=== PATIENT | female | born 1955 | race Caucasian/White ===

== ENCOUNTER → 2016-09-18 | Outpatient (CLI) | payer BC ==
[~2016-09-18] MED LIST: ADVIN25/60 INH; ALBU1AER9 INH; ATOR-22 PO; LISI20TA3 PO; PANT40TA PO; PROC1TAB5 PO; RANI300T2 PO; WARF2TAB PO
[2016-09-18 12:21] LABS: ALT/SGPT 28 U/L (12-78); BLOOD UREA NITROGEN 15 mg/dl (7-18); BUN/CREATININE RATIO 18.9 (10-20); CALCIUM 9.1 mg/dl (8.5-10.1); CARBON DIOXIDE 31 mmol/L (21-32); CHLORIDE 106 mmol/L (98-107); CHOLESTEROL 175 mg/dl (0-200); CREATININE 0.81 mg/dl (0.60-1.20); GLUCOSE 107 mg/dl (70-99); POTASSIUM 4.5 mmol/L (3.5-5.1); SODIUM 140 mmol/L (136-145); TRIGLYCERIDES 81 mg/dl (0-150); VERY LOW DENSITY LIPOPROT CALC 16 mg/dl
[2016-09-18 12:24] LABS: ALB/GLOB RATIO 1.2 (0.9-2); ALKALINE PHOSPHATASE 89 U/L (45-117); AST/SGOT 15 U/L (15-37); CHOLESTEROL/HDL RATIO 2.7; HDL CHOLESTEROL 64 mg/dl; LDL CHOLESTEROL CALCULATED 95 mg/dl
[2016-09-18 12:39] LABS: ESTIMATED AVERAGE GLUCOSE 143 mg/dl; HA1C FLAG Normal (Normal)
== END | disposition home or self-care (01) ==
LOC: C.LAB1850 10:16
PROVIDERS: ATTEND Internal Medicine Pulmonary Disease
DX: J45.909 Unspecified asthma, uncomplicated (principal); I10 Essential (primary) hypertension; K21.9 Gastro-esophageal reflux disease without esophagitis; E11.9 Type 2 diabetes mellitus without complications; M15.9 Polyosteoarthritis, unspecified

== ENCOUNTER → 2017-03-16 | Outpatient (CLI) | payer BC ==
[2017-03-16 12:18] LABS: ALT/SGPT 25 U/L (12-78); BLOOD UREA NITROGEN 16 mg/dl (7-18); BUN/CREATININE RATIO 21.6 (10-20); CALCIUM 9.6 mg/dl (8.5-10.1); CARBON DIOXIDE 28 mmol/L (21-32); CHLORIDE 105 mmol/L (98-107); CHOLESTEROL 202 mg/dl (0-200); CREATININE 0.76 mg/dl (0.60-1.20); GLUCOSE 123 mg/dl (70-99); POTASSIUM 4.2 mmol/L (3.5-5.1); SODIUM 139 mmol/L (136-145)
[2017-03-16 12:21] LABS: ALKALINE PHOSPHATASE 96 U/L (45-117); AST/SGOT 17 U/L (15-37); CHOLESTEROL/HDL RATIO 3.4; HDL CHOLESTEROL 59 mg/dl; LDL CHOLESTEROL CALCULATED 124 mg/dl; TRIGLYCERIDES 96 mg/dl (0-150); VERY LOW DENSITY LIPOPROT CALC 19 mg/dl
[2017-03-16 12:32] LABS: ESTIMATED AVERAGE GLUCOSE 146 mg/dl; HA1C FLAG Normal (Normal)
== END | disposition home or self-care (01) ==
LOC: C.LAB1850 09:42
PROVIDERS: ATTEND Internal Medicine Pulmonary Disease
DX: J45.909 Unspecified asthma, uncomplicated (principal); I10 Essential (primary) hypertension; M15.9 Polyosteoarthritis, unspecified; E11.9 Type 2 diabetes mellitus without complications; K21.9 Gastro-esophageal reflux disease without esophagitis

== ENCOUNTER → 2017-05-03 | Outpatient (CLI) | payer BC | END | disposition home or self-care (01) | LOC: C.RDSM 15:58 | PROVIDERS: ATTEND Physical Medicine & Rehabilitation Sports Medicine | DX: M17.12 Unilateral primary osteoarthritis, left knee (principal) ==

== ENCOUNTER → 2017-09-10 | Outpatient (CLI) | payer BC ==
[2017-09-10 10:34] LABS: BASO % 0.6 %; BASO ABS # 0.04 K/uL (0-0.2); EOS % 1.2 %; EOS ABS # 0.09 K/uL (0-0.5); HEMATOCRIT 43.3 % (37-47); HEMOGLOBIN 14.8 g/dL (12.0-16.0); IG# 0.01 K/uL (0.00-0.02); LYMPH % 25.3 %; LYMPH ABS # 1.83 K/uL (1.2-3.4); MEAN CELL VOLUME 90.4 fL (80-100); MEAN CORPUSCULAR HEMOGLOBIN 30.9 pg (25-34); MEAN CORPUSCULAR HGB CONC 34.2 g/dl (32-36); MEAN PLATELET VOLUME 10.7 fL (7.4-10.4); MONO % 6.5 %; MONO ABS # 0.47 K/uL (0.11-0.59); NEUT % 66.3 %; PLATELET COUNT 268 K/uL (130-400); RED CELL DISTRIBUTION WIDTH CV 13.4 % (11.5-14.5); RED CELL DISTRIBUTION WIDTH SD 44.6 fL (36.4-46.3); WHITE BLOOD COUNT 7.24 K/uL (4.8-10.8)
[2017-09-10 11:11] LABS: ALBUMIN 3.8 gm/dl (3.4-5.0); ALT/SGPT 28 U/L (12-78); AST/SGOT 14 U/L (15-37); BLOOD UREA NITROGEN 18 mg/dl (7-18); CALCIUM 9.2 mg/dl (8.5-10.1); CARBON DIOXIDE 26 mmol/L (21-32); CREATININE 0.84 mg/dl (0.60-1.20); GLUCOSE 115 mg/dl (70-99); SODIUM 138 mmol/L (136-145)
[2017-09-10 11:22] LABS: ALKALINE PHOSPHATASE 99 U/L (45-117); CHOLESTEROL 208 mg/dl (0-200); LDL CHOLESTEROL CALCULATED 120 mg/dl; TOTAL PROTEIN 7.5 gm/dl (6.4-8.2)
[2017-09-10 11:44] LABS: HEMOGLOBIN A1C 6.6 % (4.5-5.6)
== END | disposition home or self-care (01) ==
LOC: C.LAB1850 10:04
PROVIDERS: ATTEND Internal Medicine Pulmonary Disease
DX: M17.10 Unilateral primary osteoarthritis, unspecified knee (principal)

== ENCOUNTER → 2017-10-04 | Outpatient (CLI) | payer BC | END | disposition home or self-care (01) | LOC: C.RDSM 17:32 | PROVIDERS: ATTEND Physical Medicine & Rehabilitation Sports Medicine | DX: Z96.653 Presence of artificial knee joint, bilateral (principal) ==

== ENCOUNTER 2022-02-24 06:47 | Observation (INO) ==
--- NOTE | 2022-01-06 10:03 | PAT Medication Instructions ---
Medication Instructions Date of Service January 06, 2022 Home Medications Medication Instructions Recorded lisinopril 20 mg tablet 20 mg PO QAM #90 tab 04/23/21 prochlorperazine maleate 10 mg 10 mg PO UD PRN #90 tab 04/23/21 tablet (Compazine) blood sugar diagnostic ([facility]24[facility]21 Verio test strips) blood-glucose meter ([facility]Touch #1 ea 04/24/21 Verio Flex meter) lancets 33 gauge (OneTouch Delica #100 ea 04/24/21 Lancets) metformin 500 mg tablet,extended 500 mg PO BID #180 tab 04/25/21 release 24 hr tramadol 50 mg tablet 100 mg PO UD PRN #90 tab 12/08/21 ibuprofen 200 mg tablet (Advil) 200 mg PO Q6H PRN fluticasone 250 mcg-salmeterol 50 mcg/dose blistr powdr for inhalation (Advair Diskus) 1 puffs INH BID PRN lisinopril 20 mg tablet 20 mg PO QAM prochlorperazine maleate 10 mg tablet (Compazine) 10 mg PO UD PRN metformin 500 mg tablet,extended release 24 hr 500 mg PO BID tramadol 50 mg tablet 100 mg PO UD PRN albuterol sulfate 90 mcg/actuation aerosol inhaler (ProAir HFA) 2 puff INHALATION UD PRN atorvastatin 20 mg tablet 20 mg PO QAM pantoprazole 40 mg tablet,delayed release 40 mg PO BID ASK your surgeon for instructions ibuprofen 200 mg tablet (Advil) 200 mg PO Q6H PRN DO NOT take the morning of surgery lisinopril 20 mg tablet 20 mg PO QAM metformin 500 mg tablet,extended release 24 hr 500 mg PO BID Take morning of surgery With a small sip of water, OTHERWISE NOTHING TO EAT OR DRINK AFTER MIDNIGHT: fluticasone 250 mcg-salmeterol 50 mcg/dose blistr powdr for inhalation (Advair Diskus) 1 puffs INH BID PRN (if needed) prochlorperazine maleate 10 mg tablet (Compazine) 10 mg PO UD PRN (if needed) tramadol 50 mg tablet 100 mg PO UD PRN (if needed) albuterol sulfate 90 mcg/actuation aerosol inhaler (ProAir HFA) 2 puff INHALATION UD PRN (if needed) atorvastatin 20 mg tablet 20 mg PO QAM pantoprazole 40 mg tablet,delayed release 40 mg PO BID Take evening before surgery fluticasone 250 mcg-salmeterol 50 mcg/dose blistr powdr for inhalation (Advair Diskus) 1 puffs INH BID PRN (if needed) prochlorperazine maleate 10 mg tablet (Compazine) 10 mg PO UD PRN (if needed) metformin 500 mg tablet,extended release 24 hr 500 mg PO BID tramadol 50 mg tablet 100 mg PO UD PRN (if needed) albuterol sulfate 90 mcg/actuation aerosol inhaler (ProAir HFA) 2 puff INHALATION UD PRN (if needed) pantoprazole 40 mg tablet,delayed release 40 mg PO BID Other Notes If you have any questions please call us at [phone] or [phone] or [phone] or [phone]
--- NOTE | 2022-01-09 12:11 | Anesthesiology Consultation ---
Date of Service January 09, 2022 Assessment & Plan (1) Encounter for pre-operative examination: - COVID screening: Per assessment on 01/09: No known COVID-19 positive contacts or current COVID-19 related symptoms. Travel screen negative. Patient vaccinated. Surgeon arranging preop COVID testing. Awaiting results. - PCP office visit (12/17/21): "She has no known heart disease. She is at risk for healing issues with her skin condition and her diabetes. However in general her medical problems are under good control and she can proceed on with her surgery.. I will review her labs which are scheduled to be done January 08." - Hx glidescope intubation: Left distal radius fracture ORIF (12/11/19): Glidescope #4, ETT 7 at [facility]. Per post-op anesthesia progress note "In phase 2, patient with 1, maybe 2 hives, around IV insertion site. No other visible hives. Denies itching or SOB or any other concerning symptoms. Reports that sometimes tape will cause this reaction. Patient given 25 mg PO benadryl." - Check BSG AM DOS Chart Review Chart Review: Acceptable Risk for Surgery and Patient seen in Pre Admission Testing Teaching & Discussion Pre-Anesthesia Teaching/Discussion Notes: Instructed NPO after midnight before surgery,except medications with 15 cc of water. Medication instructions provided according to the PAT guidelines. History Surgery Operation Date: 01/28/22 07:00 Proposed Procedures p Lysis of Adhesions/Polyexchange Possible Revision Implants Left Knee Replacement - Pavan Villa MD Height/Weight Height: 5 ft 5.5 in Weight: 111.8 kg Allergies Allergy/AdvReac Type Severity Reaction Status Date / Time codeine AdvReac Intermediate Severe Verified 01/09/22 12:07 nausea hydrocodone AdvReac Intermediate Severe N/V Verified 01/09/22 12:07 morphine AdvReac Intermediate All Verified 01/09/22 12:07 narcotics > severe N/V oxycodone AdvReac Intermediate Severe N/V Verified 01/09/22 12:07 Medications Home Medications Medication Instructions Recorded Confirmed Last Taken ibuprofen 200 mg tablet (Advil) 200 mg PO Q6H PRN 12/08/19 01/01/22 12/07/19 fluticasone 250 mcg-salmeterol 50 1 puffs INH BID PRN 12/10/20 01/01/22 Unknown mcg/dose blistr powdr for inhalation (Advair Diskus) lisinopril 20 mg tablet 20 mg PO QAM #90 tab 04/23/21 01/01/22 Unknown prochlorperazine maleate 10 mg 10 mg PO UD PRN #90 tab 04/23/21 01/01/22 Unknown tablet (Compazine) blood sugar diagnostic ([facility]Touch #50 ea 04/24/21 12/17/21 Unknown Verio test strips) blood-glucose meter (OneTouch #1 ea 04/24/21 12/17/21 Unknown Verio Flex meter) lancets 33 gauge (OneTouch Delica #100 ea 04/24/21 12/17/21 Unknown Lancets) metformin 500 mg tablet,extended 500 mg PO BID #180 tab 04/25/21 01/01/22 Unknown release 24 hr tramadol 50 mg tablet 100 mg PO UD PRN #90 tab 12/08/21 01/01/22 Unknown albuterol sulfate 90 mcg/actuation 2 puff INHALATION UD PRN 01/01/22 01/01/22 Unknown aerosol inhaler (ProAir HFA) atorvastatin 20 mg tablet 20 mg PO QAM 01/01/22 01/01/22 Unknown pantoprazole 40 mg tablet,delayed 40 mg PO BID 01/01/22 01/01/22 Unknown release amoxicillin 875 mg-potassium 1 tab PO BID #20 tab 01/07/22 Unknown clavulanate 125 mg tablet Past Medical History Medical History Angioedema Remote hx 15-20 years ago per pt. She states she has forgotten the details (but does recall r/t spider bite). No similar episodes since. Asthma Stable Diabetes mellitus, type 2 Family history of hematologic disorder Both daughters have tested positive for Factor 5 leiden mutation. Pt reports that "my insurance won't pay to have me tested. I am worried that I may have it also" GERD (gastroesophageal reflux disease) Controlled History of COVID-19 Dx 04/2020 > headache x2 days, resolved History of kidney stones Hyperlipidemia Hypertension Obesity Osteoarthritis Exercise / Class Metabolic Activity III < 4 Walking/Shop/Light housework (one FS (no CP, + SOB)) Past Family History Family History Brother Family history of diabetes mellitus Daughter Family history of factor V Leiden mutation Son Family history of bladder cancer Other No family history of adverse response to anesthesia Past Surgical History Surgical History H/O repair of rotator cuff Right x5, Left x2 History of bilateral tubal ligation History of cholecystectomy History of esophagogastroduodenoscopy (EGD) History of open reduction and internal fixation (ORIF) procedure Left distal radius fracture ORIF (12/11/19): Glidescope #4, ETT 7 at [facility]. Per post-op anesthesia progress note "In phase 2, patient with 1, maybe 2 hives, around IV insertion site. No other visible hives. Denies itching or SOB or any other concerning symptoms. Reports that sometimes tape will cause this reaction. Patient given 25 mg PO benadryl." History of sinus surgery History of tonsillectomy History of tooth extraction History of total knee replacement R/L Nausea and vomiting after administration of anesthetic agent Past Anesthesia History No Hx of Anesthesia Complications (except PONV) and No Family Hx of Anesthesia Complications History of PONV No Hx of Motion Sickness and History of PONV (No issues when pre-treatment used (improvement with scope patch in the past)) Social History Smoking Status: Never smoker Do You Dip or Chew Tobacco: No Hx Alcohol Use: Yes (wine cooler-rare) alcohol intake frequency: holidays/special occasions only Hx Substance Use: No substance use type: does not use Review of Systems Patient denies chest pain, shortness of breath, fever, chills, cough, wheezing, palpitations. Physical Exam Vital Signs VITALS BP 135/83 P 75 TEMP 99.1 SP02 98%RA RESP 16 PHYSICAL Full cervical extension range of motion. Full TMJ range of motion. TMD 4 finger breaths Mallampati Score 3 Dentition: missing molars Lungs: clear throughout to auscultation Cardiac: regular rate and rhythm, no murmurs noted Spine: normal Carotid arteries: negative bruit Extremities: non-pitting LE edema Lab Results Anesthesia Preop Results Results Anesthesia Widget: WBC 6.54 K/ul (4.8-10.8) 01/09/22 Hgb 13.5 g/dl (12.0-16.0) 01/09/22 Hct 40.4 % (34.1-44.9) 01/09/22 Plt 249 K/uL (130-400) 01/09/22 Na 138 mmol/L (136-145) 01/09/22 K 4.0 mmol/L (3.5-5.1) 01/09/22 Cl 105 mmol/L (98-107) 01/09/22 CO2 29 mmol/L (21-32) 01/09/22 BUN 13 mg/dl (6-23) 01/09/22 Creat 0.78 mg/dl (0.6-1.2) 01/09/22 Glucose Level 178 mg/dl (70-99(Fasting)) H 01/09/22 PT 11.9 Seconds (9.0-12.0) 01/09/22 PTT 25.3 Seconds (21.0-31.0) 01/09/22 INR 1.1 (0.9-1.1) 01/09/22 HA1c 7.3 % (4.5-5.6) H 01/09/22 Urine Color Yellow 01/09/22 Urine Appearance Clear (Clear) 01/09/22 Urine pH 6.0 (4.5-7.5) 01/09/22 Urine Specific Gregory 1.031 (1.000-1.030) H 01/09/22 Urine Protein Negative (Negative) 01/09/22 Urine Glucose (UA) Negative (Negative) 01/09/22 Urine Ketones Negative (Negative) 01/09/22 Urine Blood Negative (Negative) 01/09/22 Urine Nitrite Negative (Negative) 01/09/22 Urine Bilirubin Negative (Negative) 01/09/22 Urine Urobilinogen Negative (Negative) 01/09/22 Urine Leukocyte Esterase Negative (Negative) 01/09/22 Blood Type A Positive 01/09/22 Antibody Screen NEGATIVE 01/09/22 Testing Electrocardiogram Date: 01/09/22 NSR at 72bpm. Chest X-Ray Date: 01/09/22 FINDINGS: The lungs are clear. Cardiac silhouette is normal in size. No pleural effusions. No pneumothorax. Metallic anchors noted within the left humeral head. Prior cholecystectomy. IMPRESSION: No acute process.
--- NOTE | 2022-01-20 10:23 | History & Physical Report ---
Date of Service January 20, 2022 Assessment & Plan (1) Arthrofibrosis of total knee arthroplasty: Plan: Postoperative prescription for Percocet and Coumadin will be provided at discharge from the hospital. Anticipate discharge to home with home health services. She would like to then attend PT here in the office. The patient already has access to a walker and cane. She will be sent to [facility] for preoperative lab work, EKG, and chest x-ray. She has already seen her PCP for medical clearance. She is at risk for healing issues with her type 2 diabetes and her skin condition. She is aware. The patient is aware of COVID-19 risks associated with surgery. She is currently asymptomatic of any COVID-19 symptoms. She did have COVID-19 last year. She will obtain nasal swab testing 2 days prior to surgery. PDMP was checked and there are no concerning findings. Postop followup appointment has been made for 02/13 at 10:00 a.m. for staple removal.Preop cultures and CRP are wnl. History of Present Illness Chief Complaint: Left knee pain and loss of motion Primary Care Provider: Rajat Rhodes MD This 66-year-old female presents for her preoperative history and physical. She is scheduled to undergo a left knee arthrotomy, lysis of adhesions, poly exchange, and possible revision of her left total knee arthroplasty on 01/28/2022. The patient has had a longstanding history of left knee pain. Symptoms started after falling in May of 2020. She has had persisting discomfort since then. The patient has a previous history of left total knee arthroplasty on 10/09/2015. She had a subsequent arthrotomy with lysis of adhesions, synovectomy, and primary closure 05/04/2018. She was noted to have p atella baja at that time associated with her connective tissue disease and arthrofibrosis. At this point, her patella baja has progressed. She has gone through aggressive therapy, but has not had any improvements. She elects to proceed with surgical intervention at this time to improve her range of motion and comfort. She denies any warmth. Frequent effusion. No redness. Pain is affecting her ADLs. Radiographic imaging has been obtained. Allergies Allergy/AdvReac Type Severity Reaction Status Date / Time codeine AdvReac Intermediate Severe Verified 01/09/22 12:07 nausea hydrocodone AdvReac Intermediate Severe N/V Verified 01/09/22 12:07 morphine AdvReac Intermediate All Verified 01/09/22 12:07 narcotics > severe N/V oxycodone AdvReac Intermediate Severe N/V Verified 01/09/22 12:07 Home Medications Medication Instructions Recorded Confirmed Type ibuprofen 200 mg tablet (Advil) 200 mg PO Q6H PRN Pain 12/08/19 01/01/22 History fluticasone 250 mcg-salmeterol 50 1 puffs inhalation BID PRN 12/10/20 01/01/22 History mcg/dose blistr powdr for Shortness Of Breath inhalation (Advair Diskus) lisinopril 20 mg tablet 20 mg PO QAM #90 tabs 04/23/21 01/01/22 Rx prochlorperazine maleate 10 mg 10 mg PO UD PRN Nausea #90 tabs 04/23/21 01/01/22 Rx tablet (Compazine) blood-glucose meter (OneTouch #1 ea 04/24/21 12/17/21 Rx Verio Flex meter) lancets 33 gauge (OneTouch Delica #100 ea 04/24/21 12/17/21 Rx Lancets) metformin 500 mg tablet,extended 500 mg PO BID #180 tabs 04/25/21 01/01/22 Rx release 24 hr tramadol 50 mg tablet 100 mg PO UD PRN Pain #90 tabs 12/08/21 01/01/22 Rx albuterol sulfate 90 mcg/actuation 2 puff inhalation UD PRN SOB 01/01/22 01/01/22 History aerosol inhaler (ProAir HFA) atorvastatin 20 mg tablet 20 mg PO QAM 01/01/22 01/01/22 History pantoprazole 40 mg tablet,delayed 40 mg PO BID 01/01/22 01/01/22 History release amoxicillin 875 mg-potassium 1 tab PO BID #20 tabs 01/14/22 Rx clavulanate 125 mg tablet blood sugar diagnostic (OneTouch #50 ea 01/15/22 Rx Verio test strips) Past Med/Surg History Medical History Angioedema Remote hx 15-20 years ago per pt. She states she has forgotten the details (but does recall r/t spider bite). No similar episodes since. Asthma Stable Diabetes mellitus, type 2 Family history of hematologic disorder Both daughters have tested positive for Factor 5 leiden mutation. Pt reports that "my insurance won't pay to have me tested. I am worried that I may have it also" GERD (gastroesophageal reflux disease) Controlled History of COVID-19 Dx 04/2020 > headache x2 days, resolved History of kidney stones Hyperlipidemia Hypertension Obesity Osteoarthritis Surgical History H/O repair of rotator cuff Right x5, Left x2 History of bilateral tubal ligation History of cholecystectomy History of esophagogastroduodenoscopy (EGD) History of open reduction and internal fixation (ORIF) procedure Left distal radius fracture ORIF (12/11/19): Glidescope #4, ETT [address] [facility]. Per post-op anesthesia progress note "In phase 2, patient with 1, maybe 2 hives, around IV insertion site. No other visible hives. Denies itching or SOB or any other concerning symptoms. Reports that sometimes tape will cause this reaction. Patient given 25 mg PO benadryl." History of sinus surgery History of tonsillectomy History of tooth extraction History of total knee replacement R/L Nausea and vomiting after administration of anesthetic agent Family History Brother Family history of diabetes mellitus Daughter Family history of factor V Leiden mutation Son Family history of bladder cancer Other No family history of adverse response to anesthesia Social History Smoking Status: Never smoker Second Hand Exposure: Yes ("long time ago"); Hx Alcohol Use: Yes (wine cooler-rare) Alcohol type: other Hx Substance Use: No Preferred Language: Romansh Communication Ability: Effective Visual Impairment: No Limitations Site Manager Required: No Beliefs That Will Affect Care: None marital status: Current Living Situation: Spouse Feels Safe at Home: Yes Assistive Devices: Cane and Glasses Review of Systems Review of Systems: All systems reviewed & are unremarkable except as noted in HPI & below Physical Exam Physical Exam: Vitals: Height 166 cm, weight 112.6 kilograms, BMI 40.9, temperature 36.4, BP 162/90, pulse 82, O2 sat 98% on room air. General: Well-developed, well-nourished, obese elderly female in no acute distress. Sitting in a chair. Alert and oriented. Skin: Warm and dry with good turgor. No rashes. The patient does have scars present on her wrist as well as her knees. Venous stasis type changes are present on her lower extremities. No current bullae. She does have generalized obesity. HEENT: Normocephalic, atraumatic. Eyes: PERRLA, EOMI. Nares and oropharynx exams deferred due to COVID precautions. Heart: RRR. No MGR. Lungs: Clear to auscultation bilaterally. No crackles, rhonchi or wheezing. Good air movement. Abdomen: Obese. Bowel sounds present x4. Soft, nontender. No organomegaly. No masses. Musculoskeletal: Left knee evaluation reveals a mild intraarticular effusion. No redness or warmth. She lacks a few degrees of terminal extension. Flexion to around 90 degrees. She is able to actively perform knee extension and is able to do a straight leg raise. She continues to have a slight lag. There is pain with palpation over the lateral aspect of the knee. Pain is worse around the lateral femoral condyle. No palpable snapping or popping with motion. Stable MCL and LCL stressing. No palpable defect in the quadriceps tendon or patellar tendon. No pain with palpation over the fibular head. No pain with palpation of the popliteal fossa. There appears to be a patellar baja with comparison to the noninvolved leg. Neurologic: Gross sensation is intact across both lower extremities by soft tiburcio ch. Peripheral pulses are 2+. Results & Data Results & Data ([facility]) Diagnostic Findings Radiographic imaging previously obtained shows notable patella baja that has advanced from previous films. No evidence of implant loosening. Code Status & VTE Plan VTE Prophylaxis Plan VTE Prophylaxis will be ordered: Yes
--- NOTE | 2022-02-03 15:38 | History & Physical Report ---
Date of Service February 03, 2022 Assessment & Plan (1) Arthrofibrosis of total knee arthroplasty: Plan: Postoperative prescriptions for Percocet and Coumadin will be provided at discharge from the hospital. Anticipate discharge to home with home health services. She would like to attend PT here in the office after home health has finished. She already has access to a walker and cane. I did speak with PAT and they are fine with her current lab work. It is 34 days since it was last done. EKG and chest x-ray are up-to-date. She has already seen her PCP for medical clearance. She understands that she is at risk for healing issues with her type 2 diabetes and her skin condition. The patient is aware of the COVID- 19 risks associated with surgery. She is currently asymptomatic of any COVID-19 symptoms. She did have COVID-19 earlier this year. She will obtain nasal swab testing 2 days prior to surgery. PDMP was checked and there are no concerning findings. Postop followup appointment has been made with me for 02/27 at 9:00 a.m. History of Present Illness Chief Complaint: Left knee pain and loss of motion Primary Care Provider: Rajat Rhodes MD This 66-year-old female presents today for her preoperative history and physical. She is scheduled to undergo a left knee arthrotomy, lysis of adhes ions, poly exchange and possible revision of her left total knee arthroplasty on 02/13/2022. The patient was previously scheduled for this same procedure on 01/28/2022 but was delayed due to COVID issues. She is now ready to proceed. She has a longstanding history of left knee pain. Symptoms started after falling in May of 2020. She has had persisting discomfort since then. The patient has a previous history of left total knee arthroplasty performed on 10/09/15. She has subsequent arthrotomy with lysis of adhesions, synovectomy and primary closure on 05/04/2018. She was noted to have patella baja at that time associated with her connective tissue disease and arthrofibrosis. At this point, her patella baja has progressed. She has gone through aggressive therapy, but has not had any improvements. She elects to proceed with surgical intervention in hopes of improving her range of motion and comfort. She denies any warmth. Frequent effusions. No redness. Pain is affecting her ADLs. Radiographic imaging has been obtained. Allergies Allergy/AdvReac Type Severity Reaction Status Date / Time codeine AdvReac Intermediate Severe Verified 01/09/22 12:07 nausea hydrocodone AdvReac Intermediate Severe N/V Verified 01/09/22 12:07 morphine AdvReac Intermediate All Verified 01/09/22 12:07 narcotics > severe N/V oxycodone AdvReac Intermediate Severe N/V Verified 01/09/22 12:07 Home Medications Medication Instructions Recorded Confirmed Type ibuprofen 200 mg tablet (Advil) 200 mg PO Q6H PRN Pain 12/08/19 01/01/22 History fluticasone 250 mcg-salmeterol 50 1 puffs inhalation BID PRN 12/10/20 01/01/22 History mcg/dose blistr powdr for Shortness Of Breath inhalation (Advair Diskus) lisinopril 20 mg tablet 20 mg PO QAM #90 tabs 04/23/21 01/01/22 Rx prochlorperazine maleate 10 mg 10 mg PO UD PRN Nausea #90 tabs 04/23/21 01/01/22 Rx tablet (Compazine) blood-glucose meter (OneTouch #1 ea 04/24/21 12/17/21 Rx Verio Flex meter) lancets 33 gauge (OneTouch Delica #100 ea 04/24/21 12/17/21 Rx Lancets) metformin 500 mg tablet,extended 500 mg PO BID #180 tabs 04/25/21 01/01/22 Rx release 24 hr albuterol sulfate 90 mcg/actuation 2 puff inhalation UD PRN SOB 01/01/22 History aerosol inhaler (ProAir HFA) atorvastatin 20 mg tablet 20 mg PO QAM 01/01/22 01/01/22 History pantoprazole 40 mg tablet,delayed 40 mg PO BID 01/01/22 01/01/22 History release amoxicillin 875 mg-potassium 1 tab PO BID #20 tabs 01/14/22 Rx clavulanate 125 mg tablet blood sugar diagnostic (OneTouch #50 ea 01/15/22 Rx Verio test strips) tramadol 50 mg tablet 100 mg PO DAILY PRN Pain #90 tabs 01/27/22 Rx Past Med/Surg History Medical History Angioedema Remote hx 15-20 years ago per pt. She states she has forgotten the details (but does recall r/t spider bite). No similar episodes since. Asthma Stable Diabetes mellitus, type 2 Family history of hematologic disorder Both daughters have tested positive for Factor 5 leiden mutation. Pt reports that "my insurance won't pay to have me tested. I am worried that I may have it also" GERD (gastroesophageal reflux disease) Controlled History of COVID-19 Dx 04/2020 > headache x2 days, resolved History of kidney stones Hyperlipidemia Hypertension Obesity Osteoarthritis Surgical History H/O repair of rotator cuff Right x5, Left x2 History of bilateral tubal ligation History of cholecystectomy History of esophagogastroduodenoscopy (EGD) History of open reduction and internal fixation (ORIF) procedure Left distal radius fracture ORIF (12/11/19): Glidescope #4, ETT 7 at [facility]. Per post-op anesthesia progress note "In phase 2, patient with 1, maybe 2 hives, around IV insertion site. No other visible hives. Denies itching or SOB or any other concerning symptoms. Reports that sometimes tape will cause this reaction. Patient given 25 mg PO benadryl." History of sinus surgery History of tonsillectomy History of tooth extraction History of total knee replacement R/L Nausea and vomiting after administration of anesthetic agent Family History Brother Family history of diabetes mellitus Daughter Family history of factor V Leiden mutation Son Family history of bladder cancer Other No family history of adverse response to anesthesia Social History Smoking Status: Never smoker Second Hand Exposure: Yes ("long time ago"); Do You Dip or Chew Tobacco: No; Tobacco Cessation Education Requested by Patient: No Hx Alcohol Use: Yes (wine cooler-rare) Alcohol type: other Hx Substance Use: No Preferred Language: Puerto [place]ican Communication Ability: Effective Visual Impairment: No Limitations River Boat Captain Required: No Beliefs That Will Affect Care: None marital status: Current Living Situation: Spouse Other Information That Helps Us Care for You: No Feels Safe at Home: Yes Safety Concerns: Feels Safe At This Time Assistive Devices: Cane and Glasses Review of Systems Review of Systems: All systems reviewed & are unremarkable except as noted in HPI & below Physical Exam Physical Exam: Vitals: Height 166 cm, weight 112.6 kilograms, BMI 40.9 Temperature 36.4, BP 162/90, pulse 93, O2 sat 100% on room air. General: Well-developed, well-nourished, obese, elderly female in no acute distress. Sitting in a chair. Alert and oriented. Skin: Warm and dry with good turgor. No rashes. She does have scars present on her wrist as well as her knees. She has venous stasis type changes present on the lower extremities. She does have some erythema anteriorly on the left lower leg from previous bullae. No current bullae are present. There is generalized obesity. Left knee has a mild intraarticular effusion. HEENT: Normocephalic, atraumatic. Eyes: PERRLA, EOMI. Nares and oropharynx exams deferred due to COVID precautions. Heart: RRR. No MGR. Lungs: Clear to auscultation bilaterally. No crackles, rhonchi or wheezing. Good air movement. Abdomen: Obese. Bowel sounds present x4, soft, nontender. No organomegaly. No masses. Musculoskeletal: Left knee evaluation reveals a mild intraarticular effusion. No redness or warmth. She lacks a few degrees of terminal extension. Flexion to around 90 degrees. She is able to actively perform knee extension and is able to do a straight leg raise. She continues to have the extension lag. There is pain with palpation over the lateral aspect of the knee. Pain is worse around the lateral femoral condyle. No palpable snapping or popping with motion. Stable collateral ligaments. No palpable defect in the quadriceps tendon or patellar tendon. No pain with palpation over the fibular head. There appears to be patella baja with comparison to the noninvolved leg. Neurologic: Gross sensation is intact across both lower extremities by soft touch. Peripheral pulses are 2+. Results & Data Results & Data ([facility]) Diagnostic Findings Radiographic imaging previously obtained shows notable patella baja. It has advanced from previous films. No evidence of implant loosening. Code Status & VTE Plan VTE Prophylaxis Plan VTE Prophylaxis will be ordered: Yes
[~2022-02-24 06:47] MED LIST changes: -ADVIN25/60 INH; -ALBU1AER9 INH; -ATOR-22 PO; +BUPIVACAINE 0.5 % 5 MG/1 ML PF 10ML VIAL ONE; +EPINEPHrine INJ 1 MG/ML AMP ONE; -LISI20TA3 PO; +LR 500ML BOLUS, THEN 15ML/HR IV SCH; +LR 60ML/HR IV SCH; -PANT40TA PO; -PROC1TAB5 PO; -RANI300T2 PO; +ROPIVACAINE 0.5% 5 MG/ML 30 ML VIAL ONE; +ROPIVACAINE 0.5% HCL/PF 150 MG, BUPIVACAINE 0.75% MPF 20 ML, EPINEPHrine 0.15 MG, Ketor... INFIL SCH; +TRANEXAMIC ACID 1,000 MG x 1 **For Topical Use TOP SCH; -WARF2TAB PO; +ceFAZolin 2000MG 2,000 MG/15 ML SYR IV SCH
[2022-02-24] MEDS ORDERED: LIDOCAINE 2% MPF LOCAL 5 ML VIAL INFIL ONE (08:25)
[2022-02-24] MEDS ORDERED: PROPOFOL IV EMULSION 10 MG/ML 20 ML VIAL IV ONE ×3 (08:25→10:02)
[2022-02-24] MEDS ORDERED: MIDAZOLAM HCL 1 MG/ML 2ML VIAL ONE (08:25)
[2022-02-24] MEDS ORDERED: SCOPOLAMINE 1 MG TDSY TD ONE (08:37)
--- NOTE | 2022-02-24 08:37 | History & Physical Bridge Note ---
Date of Service February 24, 2022 History & Physical Bridge Note I have examined the patient, reviewed the History & Physical and in the interval since the performance of the History & Physical I have noted the following changes of clinical significance: consent obtained/site verified/covid screen negative.no changes noted
[2022-02-24] MEDS ORDERED: CHECK SCOPOLAMINE PATCH PLACEMENT SCH ×2 (08:45→16:00)
[2022-02-24] MEDS ORDERED: SCOPOLAMINE 1 MG TDSY TD SCH (08:45)
[2022-02-24] MEDS ORDERED: ORTHO JOINT ANESTHETIC ONE (09:11)
[2022-02-24] MEDS ORDERED: fentaNYL citrate 100 MCG/2 ML VIAL ONE (09:16)
[2022-02-24] MEDS ORDERED: KETAMINE 50 MG/5 ML SYRINGE ONE (10:33)
[2022-02-24] MEDS ORDERED: ONDANSETRON INJ 2 MG/ML 2 ML VIAL ONE (10:43)
[2022-02-24] MEDS ORDERED: VANCOMYCIN HCL 1000MG/20ML VIAL ONE (10:49)
--- NOTE | 2022-02-24 11:21 | Post Operative Brief Note ---
Immediate Post Op Note v1 Date of Surgery February 24, 2022 Pre & Post Diagnosis Operation Date: 02/13/22 10:30 <No data on this case meets the specified criteria> Operation Date: 02/24/22 09:30 Pre-Op Diagnosis: Arthrofibrosis Left Knee Replacement Post-Op Diagnosis: Arthrofibrosis Left Knee Replacement I identified the patient and participated in the time-out.: Yes Procedure Operation Date: 02/13/22 10:30 <No data on this case meets the specified criteria> Operation Date: 02/24/22 09:30 Actual Procedures p Left Knee Arthrotomy, Lysis of Adhesions, Poly Exchange(Left) - Pavan Villa MD Surgeon Pavan Villa MD Print Manager Justyna/Chris Estimated Blood Loss 50 Findings Consistent with Post-Op Diagnosis
--- NOTE | 2022-02-24 11:32 | Operative Report ---
Post Operative Report Pre & Post Diagnosis Operation Date: 02/13/22 10:30 <No data on this case meets the specified criteria> Operation Date: 02/24/22 09:30 Pre-Op Diagnosis: Arthrofibrosis Left Knee Replacement Post-Op Diagnosis: Arthrofibrosis Left Knee Replacement I identified the patient and participated in the time-out.: Yes Procedure Operation Date: 02/13/22 10:30 <No data on this case meets the specified criteria> Operation Date: 02/24/22 09:30 Actual Procedures p Left Knee Arthrotomy, Lysis of Adhesions, Poly Exchange(Left) - Pavan Villa MD Surgeon Pavan Villa MD Head Of Music Justyna/Chris Estimated Blood Loss 50 Findings Consistent with Post-Op Diagnosis Specimens Left knee synovium Complications none Disposition Accompanied Patient To Recovery: Yes Disposition: Recovery Room Description of Procedure Patient was taken to the operating room where anesthesia was administered. Patient was prepped and draped in the usual sterile fashion. Please see attending's operative report for specifics of the procedure. I was present for the entire case from initial patient positioning through final wound closure. Assistance was provided in tissue retraction, hemostasis, and final wound closure. Patient was taken to the recovery room in satisfactory condition. I attest to the content of the Intraoperative Record and any orders documented therein. Any exceptions are noted below.
--- NOTE | 2022-02-24 11:33 | Operative Report ---
Post Operative Report Pre & Post Diagnosis Operation Date: 02/13/22 10:30 <No data on this case meets the specified criteria> Operation Date: 02/24/22 09:30 Pre-Op Diagnosis: Arthrofibrosis Left Knee Replacement Post-Op Diagnosis: Arthrofibrosis Left Knee Replacement I identified the patient and participated in the time-out.: Yes Procedure Operation Date: 02/13/22 10:30 <No data on this case meets the specified criteria> Operation Date: 02/24/22 09:30 Actual Procedures p Left Knee Arthrotomy, Lysis of Adhesions, Poly Exchange(Left) - Pavan Villa MD Surgeon LOBO Villa MD Salvage Machine Operator Justyna/Chris MACKENZIE Estimated Blood Loss 50 Findings Consistent with Post-Op Diagnosis see operative report Specimens see operative report Drains none Complications none Disposition Accompanied Patient To Recovery: Yes Indications This 66 year old female presented to the office with complaints of left knee pain and loss of motion. She has a history of previous total knee arthroplasty 1 on 2 arthrofibrosis after approximately 2 years. She had a lysis of adhesions done in 2018 and did well for several years. Over the last year she has noticed loss of motion again as well as an increase in pain. She elected to proceed with surgical intervention in hopes of improving her motion and comfort. Preoperative imaging was obtained. Description of Procedure Patient was administered a spinal anesthetic and then taken to the operating room where she was given sedation. She was prepped and draped in the usual sterile fashion. Please see Dr. Villa's operative report for specifics of the procedure. I was present for the entire case from initial patient positioning through final wound closure. Assistance was provided in tissue retraction, hemostasis, trial implant placement, final implant placement, and final wound closure. Patient was taken to the recovery room in satisfactory condition. I attest to the content of the Intraoperative Record and any orders documented therein. Any exceptions are noted below.
[2022-02-24] MEDS ORDERED: VANCOMYCIN CONSULT ACTIVE PRN (11:46)
--- NOTE | 2022-02-24 11:46 | Operative Report (OR) ---
DATE OF PROCEDURE: 02/24/2022. SURGEON: Pavan Villa MD. BARREL REPAIRER: Dr. Jansen. SECOND BARREL REPAIRER: Leon Perez PA-C. PREOPERATIVE DIAGNOSIS: Arthrofibrosis post total knee replacement. Left Knee. POSTOPERATIVE DIAGNOSIS: Arthrofibrosis post total knee replacement.Left Knee. OPERATION PERFORMED: Extensive lysis of adhesions, extensive excision of scar tissue, release of patella baja and poly exchange, left knee with exploration of implants not revealing any loosening. 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 She has been worked up in the past for infection and recently also had a workup, which did not reveal any infection in the joint. Her main issue is stiffness and pain. Options were discussed with her, at this point in time concerning potential findings at surgery including poly exchange, excision of all scar tissue with potential Say osteotomy, with potential revision of any implants if they were loose or perception of oversize was identified. DESCRIPTION OF PROCEDURE: The patient was appropriately identified, site verified, consent verified. Antibiotics were confirmed as being given. The left lower extremity was prepped and draped in usual routine fashion. Under anesthesia, the patient had range of motion from 0 to close to 80 degrees. Once the leg was prepped and draped in usual routine fashion, tourniquet was inflated to 300 mmHg after exsanguination of the limb with a rubber Esmarch bandage for a total of 55 minutes. The old incision was utilized. Full thickness flaps were raised. Parapatellar arthrotomy was performed. There was an extensive scar tissue. There was even some heterotopic ossification. This was all excised. The patella tendon was markedly scarred. It was released from internally and externally until it had good mobility. Once that was done, it actually improved the height of the patella approximately 1.5 cm. It was released all the way down to its insertion off the anterior aspect of the tibia and the implant. Once that was done, the patella was easily retractable laterally and placed at the side. The knee flexed, retractors placed. All the synovium around the tibia and femur was then excised. There was no sign of any loosening whatsoever. There was no sign of any loosening around the patella once the synovium was excised around that. Once that was done and everything was released, the knee was then easily flexed to 120 degrees. As a result, it was elected not to do any tubercle osteotomy, it was elected not to do any downsizing of the femur. The poly implant was removed just for trial purposes. It was downsized to a 12.5 and that created a mid range instability, so it was elected not to put that in ; it also created some hyperextension. Once the knee was irrigated out and some posterior synovectomy completed, the permanent spacer was seated. It was a 4 x 15 posterior cruciate substituting. It appropriately snapped into position indicating that there was no mid range instability. The knee was then placed through range of motion and the range was from 0-120 degrees. The wound was then finally irrigated, one final irrigation with Betadine for several minutes, one final irrigation with Pulsavac, one final irrigation with TXA and then 1 gram of vancomycin powder was placed in and around the incision and the wound, and then the wound was closed with #2 Vicryl, 2-0 Vicryl and stainless steel clips. Prior to skin closure, the knee easily flexed with range of motion from 0-120 degrees with no patella issues. Once again , it was elected after thorough thought not to do anything further with any implant parts or any bony cuts. The wound was then closed with 2-0 Vicryl superficially and stainless steel clips. Appropriate dressing was applied. She will have a Prevena placed tomorrow postoperative day #1 based on her skin issues. She will follow up in 2 weeks for staple removal. It should be mentioned that a deep culture was taken despite the fact that her preoperative inflammatory workup including Synovasure was negative. Specimen pending on culture. Otherwise, soft tissue sent for pathologic analysis that was excised. Hopefully, this will control her symptoms that were present preoperatively. Obviously, no guarantees given. DVT prophylaxis will be with Eliquis or coumadin Job ID: [id number] [facility]
[2022-02-24] MEDS ORDERED: FLUMAZENIL 0.1 MG/1 ML 10 ML VIAL IV PRN (11:57)
[2022-02-24] MEDS ORDERED: PROMETHAZINE HCL 12.5 MG in SODIUM CHLORIDE 0.9% 50 ML IV PRN (11:57)
[2022-02-24] MEDS ORDERED: ePHEDrine sulfate 50 MG/ML AMP IV PRN (11:57)
[2022-02-24] MEDS ORDERED: fentaNYL citrate 100 MCG/2 ML VIAL IV PRN (11:57)
[2022-02-24] MEDS ORDERED: HYDROmorphone INJ 1 MG/ML SYRINGE IV PRN (11:57)
[2022-02-24] MEDS ORDERED: ONDANSETRON INJ 2 MG/ML 2 ML VIAL IV PRN ×2 (11:57→12:27)
[2022-02-24] MEDS ORDERED: ATROPINE SULFATE 0.1 MG/ML 10ML SYR IV PRN (11:57)
[2022-02-24] MEDS ORDERED: NALOXONE HCL 0.4 MG/1 ML VIAL/CARP IV PRN ×2 (11:57→12:27)
--- NOTE | 2022-02-24 12:10 | Discharge Summary (DS) ---
DATE OF ADMISSION: 02/24/2022 DATE OF POTENTIAL DISCHARGE: 02/25/2022 CHIEF COMPLAINT: Left knee stiffness. HOSPITAL COURSE: The patient underwent elective arthrofibrosis resection following arthrotomy of her knee with extensive synovectomy, release of scar tissue, release of patellar baja and poly exchange. There was no sign of any loosening of any of the implants. The patient tolerated the procedure well. PAST MEDICAL HISTORY: Remarkable for epidermolysis bullosa, angioedema, asthma, diabetes mellitus type 2, hematologic disorder, factor V Leiden mutation, GERD, history of COVID-19, history of kidney stones, hyperlipidemia, hypertension, obesity, osteoarthritis. PAST SURGICAL HISTORY: Includes cholecystectomy, EGDs, tubal ligation, rotator cuff repairs multiple times, sinus surgery, tonsillectomy, bilateral knee replacements, history of ORIF of her radius. FAMILY HISTORY: Noncontributory other than diabetes, factor V Leiden mutation, history of bladder cancer. No history of adverse response to anesthesia. SOCIAL HISTORY: Reveals that she is . Does not smoke. Lives with family, feels safe at home. Uses a cane and glasses. PREADMISSION MEDICATIONS: Include ibuprofen, Advair Diskus, Compazine, metformin, albuterol, atorvastatin, pantoprazole, dental prophylaxis with amoxicillin, tramadol. ALLERGIES: INCLUDE CODEINE, HYDROCODONE, MORPHINE, AND OXYCODONE. ASSESSMENT: Overall doing well status post extensive lysis of adhesions, poly exchange, release of patella baja of her left knee. At this point in time, continue with aggressive rehabilitation. This was described in detail to her and her family about the decisions that went into having the procedure go with this pathway. They state they understand. Job ID: [id number] [facility]
--- NOTE | 2022-02-24 12:10 | Progress Notes ---
DATE OF NOTE: 02/24/2022. SUBJECTIVE: Postop check status post extensive arthrofibrosis resection, lysis of adhesions, poly exchange of her left knee. At this point in time, she is sitting up in bed, comfortable. Spinal still in place, has no pain. She denies any chest pain, shortness of breath, fever, chills, nausea, vomiting or headache. OBJECTIVE: VITAL SIGNS: Stable. She is afebrile. Wound dressing clean, dry and intact. X-rays pending. Neurovascular check limited by spinal bilaterally. ASSESSMENT AND PLAN: Overall, doing well, comfortable, status post extensive arthrofibrosis resection, lysis of adhesions, release patella baja and poly exchange of her left knee. At this point in time, she will continue with care pathway. Decision to proceed with this procedure was based on clinical judgment and the mobility of the soft tissue after release of all the scar tissue. There was no sign of any loosening of any implant and she did not have any excessive tightness in flexion from the implants. A downsizing the implant actually created mid range instability, so it was clearly not appropriate to proceed with a femoral exchange. Flexion easily was obtained to 120 degrees plus. Therefore, doing any type of cemented implant exchange did not seem to be in the best interest of this patient or cutting her bone and creating a Say osteotomy. This was described to her in detail. Job ID: [id number] [facility]
--- NOTE | 2022-02-24 12:22 | XRay Report ---
XR knee LT 1 or 2V routine CLINICAL HISTORY: s/p Poly exchange and excision arthrofibrosis TECHNIQUE: 2 views of the left knee were obtained. Comparison: Comparison is made to knee radiographs 01/09/2022 FINDINGS: Patient is status post exchange of total knee arthroplasty with expected postsurgical changes includi ng soft tissue swelling and subcutaneous emphysema. No periarticular lucency or hardware fracture is seen. There has been interval excision of a calcified mass posterior to the knee which may have repre sented intra-articular arthrofibrosis. IMPRESSION: Expected postoperative appearance status post exchange of total knee arthroplasty. ACT 112: Negative or not required by law. Electronically signed by: Caio Galo M.D. 02/24/2022 12:21 PM
[2022-02-24] MEDS ORDERED: bisacodyL 10 MG SUPP PR PRN (12:27)
[2022-02-24] MEDS ORDERED: diphenhydrAMINE 50 MG/ML VIAL IV PRN (12:27)
[2022-02-24] MEDS ORDERED: HYDROmorphone INJ 0.5 MG/0.5 ML SYR IV PRN (12:27)
[2022-02-24] MEDS ORDERED: traMADol HCL 50 MG TABLET PO PRN (12:27)
[2022-02-24] MEDS ORDERED: ALBUTEROL HFA 8 GM INHALER INH PRN (12:27)
[2022-02-24] MEDS ORDERED: SODIUM CHLORIDE 0.9% 1000ML 1,000 ML IV SCH (12:27)
[2022-02-24] MEDS ORDERED: MAGNESIUM HYDROXIDE SUSP 30 ML UDC PO PRN (12:27)
[2022-02-24] MEDS ORDERED: METOCLOPRAMIDE HCL INJ 5 MG/ML 2 ML VIAL IV PRN (12:27)
[2022-02-24] MEDS ORDERED: ALUMINUM/MAGNESIUM SUSP 30 ML UDC PO PRN (12:27)
[2022-02-24] MEDS ORDERED: FLUTICASONE/VILANTEROL 200/25MCG 14 PUFFS/INHALER INH PRN (12:43)
--- NOTE | 2022-02-24 13:02 | Anesthesiology Progress Note ---
Date of Service February 24, 2022 Anesthesia Post Procedure Vital Signs Vital Signs: Temp Pulse Pulse Resp BP BP Pulse Ox 02/24/22 13:00 65 22 142/72 H 99 02/24/22 12:30 66 17 150/72 H 99 02/24/22 12:20 36.3 C L 65 24 139/66 99 02/24/22 12:10 67 15 155/76 H 98 02/24/22 12:00 61 12 150/69 H 97 02/24/22 11:50 70 15 145/75 H 96 02/24/22 11:40 78 23 153/75 H 100 02/24/22 11:30 36.2 C L 84 23 152/78 H 98 02/24/22 07:17 37.1 C 82 18 157/85 H 98 O2 Del Method 02/24/22 13:00 Room Air 02/24/22 12:30 Room Air 02/24/22 12:20 Room Air 02/24/22 12:10 Room Air 02/24/22 12:00 Room Air 02/24/22 11:50 Room Air 02/24/22 11:40 Room Air 02/24/22 11:30 Room Air 02/24/22 07:17 Room Air Pain Intensity Posterior Knee: Pain Intensity: 2 Transfer of Care Handoff Completed per policy Notes Mental Status: alert / awake / arousable Patient Amnestic to Procedure: Yes Nausea / Vomiting: adequately controlled Pain: adequately controlled Airway Patency, RR, SpO2: stable & adequate BP & HR: stable & adequate Hydration State: stable & adequate Neuraxial Anesthesia: was administered and sensory block is resolving Anesthetic Complications: no major complications apparent
[2022-02-24] MEDS ORDERED: ORTHO WARFARIN NOMOGRAM SCH (14:00)
[2022-02-24] MEDS ORDERED: LR 60ML/HR IV SCH (14:00)
[2022-02-24] MEDS ORDERED: VANCOMYCIN HCL 1,750 MG in SODIUM CHLORIDE 0.9% 500 ML IV ONE (14:00)
[2022-02-24] MEDS ORDERED: Nursing to Pharmacy Communication SCH (15:00)
[2022-02-24] MEDS: ACETAMINOPHEN 500 MG TAB PO SCH ×2 (15:04→21:19)
[2022-02-24] MEDS: KETOROLAC TROMETHAMINE 15 MG/ML VIAL IV SCH ×2 (15:10→19:31)
[2022-02-24] MEDS: ATORVASTATIN 20 MG TAB PO SCH (15:28)
[2022-02-24] MEDS ORDERED: WARFARIN SOD 5 MG TAB PO ONE (16:00)
[2022-02-24] MEDS: INSULIN ASPART PER UNIT SC SCH ×2 (17:21→21:18)
[2022-02-24] MEDS: FERROUS GLUCONATE 324 MG TAB PO SCH (17:22)
[2022-02-24] MEDS: ASCORBIC ACID 500 MG TAB PO SCH (17:22)
[2022-02-24] MEDS: ceFAZolin 2000MG 2,000 MG/15 ML SYR IV SCH (18:32)
[2022-02-24] MEDS ORDERED: SENNA 8.6 MG TAB PO SCH (21:00)
[2022-02-24] MEDS: DOCUSATE SODIUM 100 MG CAP PO SCH (21:17)
[2022-02-24] MEDS: PANTOprazole 40 MG TAB PO SCH (21:18)
[2022-02-25] MEDS: ceFAZolin 2000MG 2,000 MG/15 ML SYR IV SCH (01:30)
[2022-02-25] MEDS: KETOROLAC TROMETHAMINE 15 MG/ML VIAL IV SCH ×2 (01:30→08:44)
[2022-02-25] MEDS: ACETAMINOPHEN 500 MG TAB PO SCH (05:47)
[2022-02-25 07:49] LABS: Hematocrit (blood only) 36.4 % (34.1-44.9); Mean Corpuscular Hemoglobin 29.9 pg (25.0-34.0); Mean Corpuscular Volume 90.8 fL (80.0-100.0); Mean Platelet Volume 11.6 fL (9.4-12.3); Platelet Count 241 K/uL (130-400); RDW Coefficient of Variation 12.6 % (11.5-14.5); Red Blood Count 4.01 M/uL (3.93-5.22)
--- NOTE | 2022-02-25 07:49 | Progress Notes ---
SUBJECTIVE: Postop check status post extensive release and lysis of adhesions, excision arthrofibros is, poly exchange, left knee. At this point in time, the patient is sitting up in bed comfortably. Denies chest pain, shortness of breath, fever, chills, nausea, vomiting or headache. OBJECTIVE: Vital signs are stable. She is afebrile. Neurovascular check femoral sciatic nerve is normal. Overall, dressing is clean and dry. LABORATORY DATA: Glucose this morning was 210, other labs are pending. ASSESSMENT AND PLAN: Overall doing well. Continue with care pathway. Dressing change later today w aspen Baez. Discharge to home after PT/OT. Job ID: [id number]
[2022-02-25 07:53] LABS: INR 1.2 (0.9-1.1); Prothrombin Time 12.4 Seconds (9.0-12.0)
[2022-02-25 08:25] LABS: BUN Creatinine Ratio 23.3 (10-20); Calcium 9.1 mg/dl (8.5-10.1); Creatinine Clr Calc Pharmacy 81.6 ml/min; Est GFR (African American) 82.2 ml/min; Est GFR (Non-African American) 70.9 ml/min; Potassium 3.7 mmol/L (3.5-5.1)
[2022-02-25] MEDS: INSULIN ASPART PER UNIT SC SCH (08:40)
[2022-02-25] MEDS: PANTOprazole 40 MG TAB PO SCH (08:46)
[2022-02-25] MEDS: FERROUS GLUCONATE 324 MG TAB PO SCH (08:47)
[2022-02-25] MEDS: ASCORBIC ACID 500 MG TAB PO SCH (08:47)
[2022-02-25] MEDS: ATORVASTATIN 20 MG TAB PO SCH (08:48)
[2022-02-25] MEDS: DOCUSATE SODIUM 100 MG CAP PO SCH (08:49)
[2022-02-25] MEDS ORDERED: MULTIVITAMIN TAB PO SCH (09:00)
[2022-02-25] MEDS ORDERED: lisinopril 20 MG TAB PO SCH (09:00)
[2022-02-25] MEDS ORDERED: Nursing to Pharmacy Communication SCH (09:15)
[2022-02-25] MEDS ORDERED: WARFARIN SOD 5 MG TAB PO ONE (16:00)
== END 2022-02-25 11:29 | disposition home health service (06) ==
LOC: PACUINP 06:47 → ASU 06:47 → 3E 13:16